=== PATIENT | female | born 1995 | race Caucasian/White ===

== ENCOUNTER → 2018-10-07 12:08 | Outpatient (CLI) | payer OTHER, SELFPAY ==
--- NOTE | 2018-10-07 12:10 | DI.US.S_ITS ---
PROCEDURE: US ABDOMEN LIMITED INDICATIONS: UMBILICAL/ABDOMINAL MASS TECHNIQUE: Real-time focused scanning was performed of the abdomen, with image documentation. COMPARISON: None. FINDINGS: Approximately 1-2 cm superior to the umbilicus there is a ventral hernia which appears to contain decompressed peristalsing bowel. This is within the area of palpable abnormality. IMPRESSION: Supraumbilical bowel-containing ventral hernia; further assessment could be performed with CT as necessary Dictated by: Maxwell Zhang M.D. on 10/07/2018 at 16:35 Approved by: Maxwell Zhang M.D. on 10/07/2018 at 16:37
== END ==
PROVIDERS: PCP Family Medicine; Visit Provider Registered Nurse
DX: R19.00 Intra-abdominal and pelvic swelling, mass and lump, unspecified site (principal); K43.9 Ventral hernia without obstruction or gangrene
CPT/HCPCS: 76705